=== PATIENT | female | born 1945 | race Caucasian/White ===

== ENCOUNTER 2023-03-14 17:04 | Emergency (ER) | payer MEDICARE, OTHER ==
[~2023-03-14] VITALS: Ht 154.9 cm; Wt 56.7 kg
[2023-03-14 17:16] VITALS: BP 121/101
[2023-03-14] MEDS ORDERED: Percocet 5-3251 EACH PO (19:15)
[2023-03-14] MEDS ORDERED: PROM25 PO (19:15)
== END 2023-03-14 20:00 | disposition home or self-care (01) ==
LOC: ER 17:04
DX: M54.50 Low back pain, unspecified (principal); W19.XXXA Unspecified fall, initial encounter; G89.29 Other chronic pain
CPT/HCPCS: 72070; 72100; 72170; 99283-25; A9270